=== PATIENT | male | born 1970 | race African-American/Black ===

== ENCOUNTER 2018-11-28 08:04 | Emergency (ER) | payer SELFPAY ==
[~2018-11-28] VITALS: Ht 177.8 cm; Wt 82.0 kg
[2018-11-28] MEDS ORDERED: KETOROLAC 60MG/2ML VIAL IM ONE (09:15)
[2018-11-28] MEDS ORDERED: CYCLOBENZAPRINE 10MG TABLET PO ONE (09:15)
[2018-11-28 10:01] VITALS: BP 108/70
== END 2018-11-28 10:00 | disposition home or self-care (01) ==
LOC: ER 08:04
DX: M47.9 Spondylosis, unspecified (principal); M54.5 Low back pain
CPT/HCPCS: 96372; 99283; J1885